=== PATIENT | female | born 1960 ===

== ENCOUNTER 2019-07-25 06:00 | Outpatient (CLI) | payer OTHER ==
[~2019-07-25] VITALS: Ht 162.6 cm; Wt 55.3 kg
[2019-07-25] MEDS ORDERED: ASPIR 8181 MG PO (09:25)
[2019-07-25] MEDS ORDERED: FORTAMET500 MG PO ×2 (09:25→09:30)
[2019-07-25] MEDS ORDERED: COZAAR50 MG PO (09:25)
[2019-07-25] MEDS ORDERED: [UNRECOGNIZED DRUG - OTHER] PO (09:26)
[2019-07-25] MEDS ORDERED: BIOTIN1 M1 PO (09:27)
[2019-07-25] MEDS ORDERED: MULTIPLE VITAM1 EACH PO (09:27)
[2019-07-25] MEDS ORDERED: VITC PO (09:27)
[2019-07-25] MEDS ORDERED: CRESTOR40 MG PO (09:28)
[2019-07-25] MEDS ORDERED: CALCIUM + D3 E1 EACH PO (09:29)
[2019-07-25] MEDS ORDERED: ALENDRONATE SOD35 MG PO (09:30)
[2019-07-25] MEDS ORDERED: [UNRECOGNIZED DRUG - OTHER] PO (09:31)
[2019-07-28] MEDS ORDERED: VITAMIN C1000 MG PO (09:58)
== END 2019-07-25 06:05 | disposition home or self-care (01) ==
LOC: LAB 06:00 → O/R 07-28 06:50 → SURH 07-28 06:50 → O/R 07-28 07:15 → EDSTATUS 07-28 07:15 → CIR.AMB 07-28 07:15 → SURH 07-28 13:00 → CIR.AMB 07-28 20:00 → EDSTATUS 08-30 07:15 → CIR.AMB 08-30 07:15
DX: N95.0 Postmenopausal bleeding (principal); Z01.818 Encounter for other preprocedural examination; D64.89 Other specified anemias; N39.0 Urinary tract infection, site not specified; R79.1 Abnormal coagulation profile

== ENCOUNTER 2019-07-26 15:00 | Outpatient (CLI) | payer OTHER ==
[~2019-07-26 15:00] MED LIST: ALENDRONATE SOD35 MG PO; ASPIR 8181 MG PO; BIOTIN1 M1 PO; CALCIUM + D3 E1 EACH PO; COZAAR50 MG PO; CRESTOR40 MG PO; FORTAMET500 MG PO; MULTIPLE VITAM1 EACH PO; VITC PO; [UNRECOGNIZED DRUG - OTHER] PO; [UNRECOGNIZED DRUG - OTHER] PO
[2019-07-28] MEDS ORDERED: VITAMIN C1000 MG PO (09:58)
== END 2019-07-26 15:11 | disposition home or self-care (01) ==
LOC: NUCLEAR 15:00
DX: I73.9 Peripheral vascular disease, unspecified (principal); I87.2 Venous insufficiency (chronic) (peripheral)

== ENCOUNTER 2019-11-14 11:00 | Inpatient (IN) | payer OTHER ==
[~2019-11-14] VITALS: Ht 162.6 cm; Wt 89.8 kg
[~2019-11-14 11:00] MED LIST changes: +VITAMIN C1000 MG PO
== END 2019-11-18 10:50 | DRG 743 ==
LOC: O/R 11-17 05:48 → SURH 11-17 10:00 → O/R 11-17 11:00 → OB/GYN 11-17 13:16
PROVIDERS: ADMIT Obstetrics & Gynecology Gynecologic Oncology; ATTEND Obstetrics & Gynecology Gynecologic Oncology
PROC: 0UT24ZZ Resection of Bilateral Ovaries, Percutaneous Endoscopic Approach (ICD-10-PCS; 2019-11-17)
PROC: 0UB74ZZ Excision of Bilateral Fallopian Tubes, Percutaneous Endoscopic Approach (ICD-10-PCS; 2019-11-17)
PROC: 07BC4ZZ Excision of Pelvis Lymphatic, Percutaneous Endoscopic Approach (ICD-10-PCS; 2019-11-17)
PROC: 0UT94ZZ Resection of Uterus, Percutaneous Endoscopic Approach (ICD-10-PCS; principal; 2019-11-17 10:00)
DX: D25.1 Intramural leiomyoma of uterus (principal); D28.2 Benign neoplasm of uterine tubes and ligaments; N80.0 Endometriosis of uterus